=== PATIENT | female | born 1950 | race Caucasian/White ===

== ENCOUNTER → 2018-01-09 09:13 | Outpatient (CLI) | payer MEDICARE, SELFPAY ==
--- NOTE | 2018-01-09 09:16 | DI.RAD.S_ITS ---
PROCEDURE: XR ANKLE LT MIN 3V INDICATIONS: Left ankle pain TECHNIQUE: 3 views of the ankle were acquired. COMPARISON: None. FINDINGS: Bones: Small avulsion fracture at the tip of the lateral malleolus is presumed to be acute although appearance is indeterminate. Overlying soft tissue swelling is present. Another avulsion is noted along the lateral margin of the foot, appearing to be over the distal calcaneus on lateral view. Ankle mortise is normally aligned. No suspicious bony lesions. Soft tissues: No tibiotalar joint effusion. Achilles tendon appears normal. IMPRESSION: 1. Avulsion fracture tip of the lateral malleolus with overlying soft tissue swelling, presumed acute but indeterminate. Correlate clinically. 2. Small cortical avulsion along the lateral margin of the calcaneus. Dictated by: Truman Espinoza M.D. on 01/09/2018 at 9:35 Approved by: Truman Espinoza M.D. on 01/09/2018 at 9:41
== END ==
PROVIDERS: Visit Provider Physician Assistant
DX: S82.62XA Displaced fracture of lateral malleolus of left fibula, initial encounter for closed fracture (principal); S92.002A Unspecified fracture of left calcaneus, initial encounter for closed fracture
CPT/HCPCS: 73610

== ENCOUNTER 2018-10-20 09:20 | Inpatient (IN) | payer MEDICARE, SELFPAY ==
[2018-10-20] VITALS (26 sets, daily range): BP systolic 82–140; BP diastolic 51–90; PULSE 78–105; RESP 14–25; TEMP 36.4–39.3; O2SAT 93–100; BMI 22.9
--- NOTE | 2018-10-20 | PATH_ITS ---
[facility] Accession Number: [id number] . 01 Material submitted: . appendix - APPENDIX . 02 Diagnosis: Appendix, Appendectomy: Acute appendicitis, perforated. No evidence of neoplasm. [facility]/10/24/2018 . 02 Electronically signed: . Clifford Gimenez MD, PhD, Pathologist NPI- [id number] . 01 Gross description: . Received in formalin, labeled appendix, is an appendix (length-4.2 cm, diameter-1.3 cm) with yusuf-pink smooth and shiny and focally dull serosa and attached mesoappendix (up to 1.0 cm in depth). The resection margin is received opened. The distal half of the specimen is covered in yusuf-yellow flaky friable exudate. The lumen contains yusuf-brown solid soft material. The wall is up to 0.3 cm thick. No nodules, masses or lesions are identified. The resection margin is inked black. Section code: (A1) resection margin en face and three additional serial sections; (A2) one-half of the bivalved tip. ([id number]) /[facility] . 02 Pathologist provided ICD-10: K35.20 . 02 CPT . 476571 Performed at: 01 [facility] [address], [place], [place] [id number] MD Pawel Hays MD Phone: [phone] Performed at: 02 [facility] [address] [place], [place] [id number] MD Odalys Mayo MD Phone: [phone]
--- NOTE | 2018-10-20 09:47 | ED_ITS ---
HPI - Abdominal Pain General Chief Complaint: Abdominal Pain Stated Complaint: Lower Abd. pain Time Seen by Provider: 10/20/18 09:35 Source: patient Mode of arrival: ambulatory Limitations: no limitations History of Present Illness HPI narrative: 68-year-old female comes to the emergency department with complaint of abdominal pain. Started her right lower quadrant, has started to radiate to her general abdomen now. It started 2 days ago on Tuesday. She has become increasingly painful. She has not had fevers but has felt chilled sort of shaky. She denies any chest pain or shortness of she denies any nausea or vomiting. She has had normal bowel movements. She has had no urinary urgency frequency or dysuria. Patient states she does not have any other medical problems. She had lumpectomy for breast cancer in the past. She states no known drug allergies. She does not smoke, drink alcohol or use any illicit drugs. 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 No prior abdominal surgeries. Related Data Home Medications Medication Instructions Recorded Confirmed No Known Home Medications 01/09/18 10/20/18 Allergies Allergy/AdvReac Type Severity Reaction Status Date / Time No Known Drug Allergies Allergy Verified 10/20/18 15:10 Review of Systems Review of Systems ROS Unobtainable: All systems reviewed & are unremarkable except as noted in HPI and below Constitutional Denies chills, Denies fever(s), Denies lethargy and Denies weakness Cardiovascular Denies chest pain, Denies palpitations and Denies dyspnea Respiratory Denies chest congestion, Denies cough and Denies dyspnea Gastrointestinal Gastrointestinal: Reports abdominal pain (RLQ, now generalized.), Denies constipation, Denies diarrhea, Denies nausea and Denies vomiting Genitourinary Denies hematuria, Denies urinary frequency, Denies dysuria, Denies flank pain, Denies urinary incontinence and Denies urinary urgency Musculoskeletal Denies back pain Integumentary/Breasts Denies rash Neurologic Denies weakness Endocrine Denies palpitations [facility] History History of lumpectomy (Chronic) Social History (Updated 10/20/18 @ 09:56 by Joie Birch DO) household members: none Smoking Status: Never smoker substance use type: does not use Social History (Updated 10/20/18 @ 09:56 by Joie Birch DO) household members: none Smoking Status: Never smoker substance use type: does not use Exam Narrative Exam Narrative: GENERAL: Alert and oriented x three, well-nourished, well- appearing thin female in moderate distress. HEENT: Head normocephalic, atraumatic, EOMI, pupils reactive, face symmetric, moist mucous membranes NECK: Supple, full range of motion CARDIOVASCULAR: Regular rate and rhythm without murmurs, rubs or gallops. RESPIRATORY: Breath sounds equal bilaterally, no wheezes rales or rhonchi. ABDOMEN: Soft, generalized tenderness greatest in the right lower quadrant. Normoactive bowel sounds all 4 quadrants. No guarding or rebound, rigidity, no mass : No CVA tenderness EXTREMITIES: Normal range of motion, no clubbing or edema. Neurovascularly intact NEUROLOGICAL: Cranial nerves II through XII grossly intact. Moving all extremities SKIN: Warm, dry, no petechiae, no rashes or lesions. Initial Vital Signs Initial Vital Signs: Vital Signs Temperature 98.2 F 10/20/18 09:23 Pulse Rate 102 H 10/20/18 09:23 Respiratory Rate 22 10/20/18 09:23 Blood Pressure 105/83 10/20/18 09:23 Pulse Oximetry 100 10/20/18 09:23 Course Orders Ordered: ED Orders 10/20/18 09:50 Complete Blood Count AUTO DIFF Stat Comprehensive Metabolic Panel Stat Lactate (Lactic Acid) Stat Lipase Stat 10/20/18 09:57 Blood Culture Stat 10/20/18 10:59 CT abdomen pelvis w con Stat 10/20/18 11:33 Urine Culture Stat Urine Microscopic Stat 10/20/18 16:35 Wound Culture and Gram Stain Routine 10/20/18 18:25 Consult to Discharge Planning Routine Education, smoking cessation ONGOING 10/21/18 05:00 Complete Blood Count AUTO DIFF Routine Acetaminophen (Tylenol) 650 mg PO Q6HR PRN PRN Reason: Mild pain/temp > 100.0 Hydrocodone Bitart/Acetaminophen ([place] 5/325) 1 tab PO Q4HR PRN PRN Reason: Pain, Moderate (4-6) Docusate Sodium (Colace) 100 mg PO BID PRN PRN Reason: Constipation Enoxaparin Sodium (Lovenox) 40 mg SUBCUT DAILY [facility] Gabapentin (Neurontin) 300 mg PO BID NILDA Lactated Ringer's (Lactated Ringers) 1,000 mls @ 100 mls/hr IV CONT NILDA Piperacillin/Tazobactam/Dextrose (Zosyn) 3.375 gm in 50 mls @ 100 mls/hr IV Q6H NILDA Last Infusion: 10/20/18 16:05 Dose: 0 mls/hr Admin: 10/20/18 15:53 Dose: 100 mls/hr Lactated Ringer's (Lactated Ringers) 1,000 mls @ 125 mls/hr IV CONT NILDA Ketorolac Tromethamine (Toradol) 30 mg IV Q8HR PRN PRN Reason: Pain Stop: 10/25/18 18:06 Morphine Sulfate (Morphine) 4 mg IV Q4HR PRN PRN Reason: Pain, Severe (7-10) Naloxone HCl (Narcan) 0.2 mg IV Q2MIN PRN PRN Reason: Opiate Reversal Discontinued Medications Acetaminophen (Tylenol) 975 mg PO NOW ONE Stop: 10/20/18 11:48 Last Admin: 10/20/18 11:47 Dose: 975 mg Bupivacaine HCl (Sensorcaine 0.5% (Pf)) 30 ml INJ NOW ONE Stop: 10/20/18 16:34 Last Admin: 10/20/18 16:34 Dose: 10 ml Fentanyl (Sublimaze) 50 mcg IV Q5MIN PRN PRN Reason: Pain, Moderate (4-6) Hydromorphone HCl (Dilaudid) 0.5 mg IV Q5MIN PRN PRN Reason: Pain, Moderate (4-6) Sodium Chloride (Normal Saline 0.9%) 1,877.88 mls @ 625.96 mls/hr 30 ml/kg infuse over 3 hr (1877.88 ml) IV NOW ONE Stop: 10/20/18 12:47 Last Infusion: 10/20/18 12:42 Dose: 625.96 mls/hr Admin: 10/20/18 09:58 Dose: 625.96 mls/hr Piperacillin/Tazobactam/Dextrose (Zosyn) 3.375 gm in 50 mls @ 100 mls/hr IV NOW ONE Stop: 10/20/18 11:22 Last Infusion: 10/20/18 12:15 Dose: 0 mls/hr Admin: 10/20/18 11:37 Dose: 100 mls/hr Lactated Ringer's (Lactated Ringers) 1,000 mls @ 42 mls/hr IV CONT NILDA Last Admin: 10/20/18 16:38 Dose: 42 mls/hr Infusion: 10/20/18 16:38 Dose: 42 mls/hr Admin: 10/20/18 13:10 Dose: 42 mls/hr Piperacillin/Tazobactam/Dextrose (Zosyn) 3.375 gm in 50 mls @ 100 mls/hr IV Q6HR NILDA Meperidine HCl (Demerol) 25 mg IV Q5MIN PRN PRN Reason: Pain or shivering Morphine Sulfate (Morphine) 4 mg IV NOW ONE Stop: 10/20/18 09:42 Last Admin: 10/20/18 10:18 Dose: 4 mg Morphine Sulfate (Morphine) 4 mg IV NOW ONE Stop: 10/20/18 11:32 Last Admin: 10/20/18 11:38 Dose: 4 mg Ondansetron HCl (Zofran) 4 mg IV NOW ONE Stop: 10/20/18 09:42 Last Admin: 10/20/18 10:18 Dose: 4 mg Ondansetron HCl (Zofran) 4 mg IV NOW PRN PRN Reason: Nausea And Vomiting Vital Signs - 8 hr 10/20/18 11:32 10/20/18 11:38 10/20/18 11:44 Temperature 102.8 F H 102.8 F H Pulse Rate 104 H 102 H Respiratory Rate 22 20 Blood Pressure Blood Pressure [Left Arm] 128/71 Pulse Oximetry 100 10/20/18 11:47 10/20/18 11:54 10/20/18 12:00 Temperature 102.8 F H 102.7 F H Pulse Rate 105 H Respiratory Rate 22 Blood Pressure Blood Pressure [Left Arm] 124/68 126/64 Pulse Oximetry 96 10/20/18 12:12 10/20/18 12:33 10/20/18 12:34 Temperature 102.7 F H 102.7 F H Pulse Rate 98 H Respiratory Rate Blood Pressure 119/69 Blood Pressure [Left Arm] Pulse Oximetry 99 10/20/18 13:05 10/20/18 15:08 10/20/18 17:39 Temperature 101.2 F H 97.9 F 97.8 F Pulse Rate 94 H 90 Respiratory Rate 16 20 Blood Pressure 97/59 L 105/72 Blood Pressure [Left Arm] Pulse Oximetry 93 98 10/20/18 17:43 10/20/18 17:48 10/20/18 17:54 Temperature Pulse Rate 81 81 78 Respiratory Rate 17 17 15 Blood Pressure 91/51 L 95/59 L 99/53 L Blood Pressure [Left Arm] Pulse Oximetry 95 97 95 10/20/18 18:08 10/20/18 18:20 Temperature 97.6 F Pulse Rate 84 83 Respiratory Rate 15 14 Blood Pressure 90/58 L 110/60 Blood Pressure [Left Arm] Pulse Oximetry 94 95 MDM - Abdominal Pain Lab Data Attestation: I reviewed the patient's lab results. Result diagrams: 10/20/18 09:50 10/20/18 09:50 Lab Results 10/20/18 10/20/18 10/20/18 Range/Units 09:50 09:50 09:50 WBC 21.1 H (4.5-11.0) X10^3/uL RBC 4.08 (4.0-5.2) X10^6/uL Hgb 12.0 (12.0-16.0) g/dL Hct 36.2 (36-46) % MCV 88.7 (80-100) fL MCH 29.5 (26-34) PG MCHC 33.2 (30-36) % RDW 13.4 (11.6-14.8) % Plt Count 299 (150-400) X10^3/uL Neut % (Auto) 89.4 H (50-75) % Lymph % (Auto) 3.1 L (25-40) % [place] % (Auto) 7.2 (3-14) % Eos % (Auto) 0.0 L (2-4) % Baso % (Auto) 0.3 (0-2) % Neut # (Auto) 76748 H (5214-8831) /uL Lymph # (Auto) 600 L (2023-5251) /uL [place] # (Auto) 1500 H (0-900) /uL Eos # (Auto) 0 (0-450) /uL Baso # (Auto) 100 (0-100) /uL Sodium 134 L (137-145) mmol/L Potassium 3.6 (3.4-5.1) mmol/L Chloride 96 L (98-107) mmol/L Carbon Dioxide 24 (22-32) mmol/L BUN 11 (7-17) mg/dL Creatinine 0.80 (0.52-1.04) mg/dL Estimated GFR > 60.0 (>60) mL/min BUN/Creatinine Ratio 13.8 (6-22) Glucose 137 H (80-110) mg/dL Lactate 2.2 H (0.7-2.1) mmol/L Calcium 9.7 (8.4-10.2) mg/dL Total Bilirubin 0.8 (0.2-1.3) mg/dL AST 16 (14-36) IU/L ALT < 6 L (9-52) IU/L Alkaline Phosphatase 77 (38-126) U/L Total Protein 7.8 (6.3-8.2) g/dL Albumin 4.3 (3.5-5.0) g/dL Globulin 3.5 (1.7-4.1) g/dL Albumin/Globulin Ratio 1.2 (1.0-2.8) Lipase 29 (23-300) U/L Urine RBC (0-5/HPF) Urine WBC (0-5/HPF) Ur Squamous Epith Cells (0-5/HPF) Amorphous Sediment Urine Bacteria (None) Granular Casts (None) Urine Mucus (Negative) Ur Culture Indicated? 10/20/18 10/20/18 Range/Units 11:33 12:00 WBC (4.5-11.0) X10^3/uL RBC (4.0-5.2) X10^6/uL Hgb (12.0-16.0) g/dL Hct (36-46) % MCV (80-100) fL MCH (26-34) PG MCHC (30-36) % RDW (11.6-14.8) % Plt Count (150-400) X10^3/uL Neut % (Auto) (50-75) % Lymph % (Auto) (25-40) % [place] % (Auto) (3-14) % Eos % (Auto) (2-4) % Baso % (Auto) (0-2) % Neut # (Auto) (6934-3171) /uL Lymph # (Auto) (6716-0069) /uL [place] # (Auto) (0-900) /uL Eos # (Auto) (0-450) /uL Baso # (Auto) (0-100) /uL Sodium (137-145) mmol/L Potassium (3.4-5.1) mmol/L Chloride (98-107) mmol/L Carbon Dioxide (22-32) mmol/L BUN (7-17) mg/dL Creatinine (0.52-1.04) mg/dL Estimated GFR (>60) mL/min BUN/Creatinine Ratio (6-22) Glucose (80-110) mg/dL Lactate 1.0 (0.7-2.1) mmol/L Calcium (8.4-10.2) mg/dL Total Bilirubin (0.2-1.3) mg/dL AST (14-36) IU/L ALT (9-52) IU/L Alkaline Phosphatase (38-126) U/L Total Protein (6.3-8.2) g/dL Albumin (3.5-5.0) g/dL Globulin (1.7-4.1) g/dL Albumin/Globulin Ratio (1.0-2.8) Lipase (23-300) U/L Urine RBC 0-1/hpf (0-5/HPF) Urine WBC 5-10/hpf H (0-5/HPF) Ur Squamous Epith Cells 0-1 /hpf (0-5/HPF) Amorphous Sediment 1+ Urine Bacteria Occasional (0-1) (None) Granular Casts 0-1/lpf (None) Urine Mucus 1+ H (Negative) Ur Culture Indicated? Specimen cultured Point of care testing: Point of Care Testing Glucose POC 95 Urine Dip Bedside Urine Glucose Negative Bedside Urine Bilirubin - Negative Bedside Urine Ketone ++ 40 Urine Specific [place] 1.010 Bedside Urine Occult Blood + Bedside Urine pH 6.0 Bedside Urine Protein +/- 15 Bedside Urine Urobilinogen - Negative Bedside Urine Nitrite - Negative Bedside Urine Leukocytes - Negative Esterase Imaging Data CT scan - abdomen: Radiologist's impression: [address] [address] [address] Scan Report Signed Patient: Millie Bedolla RMR#: [id number] : 1950Acct:[id number] Age/Sex: 68 / FDate of Service: 10/20/18 Loc: [id number]-[id number] Accession Number: [id number] Procedure: CT abdomen pelvis w con Ordering Provider: Joie Birch D.O. PROCEDURE: CT ABDOMEN PELVIS W CON INDICATIONS: RLQ pain, now radiating to general abdomen TECHNIQUE: After the administration of oral and intravenous contrast, 5 mm thick sections acquired from the diaphragms to the symphysis. 5 mm thick coronal and sagittal reformats were performed. For radiation dose reduction, the following was used: automated exposure control, adjustment of mA and/or kV according to patient size. COMPARISON: None. FINDINGS: Image quality: Excellent. ABDOMEN: Lung bases: There is mild dependent atelectasis bilaterally. Heart size is normal. Solid organs: Evaluation of the liver demonstrates no focal hepatic lesions. The gallbladder appears within normal limits without calcified gallstones. Biliary system is non-dilated. Pancreas enhances normally. No peripancreatic fat stranding or fluid collections. No pancreatic duct dilatation. The spleen is normal in size. No adrenal nodules. Kidneys demonstrate no hydronephrosis. Peritoneum and bowel: The appendix is distended, measuring up to 1.3 cm with mild wall thickening and enhancement. An appendicolith is demonstrated within the lumen measuring up to 0.8 cm. There is periappendiceal fat stranding as well as extensive fat stranding and a small amount of free fluid in the right lower quadrant and right merna pelvis. The findings are consistent with acute appendicitis with probable perforation and peritonitis. No macroscopic free air identified. No discrete peripherally enhancing abscess collection. There is mild segmental wall thickening and enhancement of adjacent small and large bowel loops including the sigmoid colon and distal ileum compatible with reactive inflammatory changes. The remainder of the spine large bowel are normal in caliber. No evidence of bowel obstruction. Nodes and vessels: No retroperitoneal or mesenteric adenopathy. Aorta and inferior vena cava are normal in caliber. Miscellaneous: No ventral hernias. PELVIS: Genitourinary: Bladder wall thickness is normal. Miscellaneous: No inguinal hernias or adenopathy. Bones: No suspicious bony lesions. No vertebral body compression fractures. IMPRESSION: 1. Findings consistent with perforated appendicitis with a localized peritonitis in the right lower quadrant. No discrete abscess collection at this time. 2. Segmental wall thickening of adjacent small and large bowel loops likely represent reactive inflammatory changes. Findings discussed with Dr. Birch on 10/20/18 at 11:25 AM. Dictated by: Pawel Barron M.D. on 10/20/2018 at 11:23 Approved by: Pawel Barron M.D. on 10/20/2018 at 11:31 [facility] Narrative Medical decision making narrative: Patient's symptoms are concerning for appendicitis. Spoke with Dr. Fiore patient has a white count of 21 with the right lower quadrant pain that is now generalized. He does request a CT. The patient has been started on 30 cc/kilos bolus. And Zosyn for antibiotics given. Patient to CT she still had not urinated catheterized and had [address] Barron called back with CT findings with perfect appendicitis, she also has some right lower quadrant fluid and signs of peritonitis, they do not see an abscess but do see some thickening of the bowel wall. Spoke with Dr. Fiore, reviewed CT findings. He accepts. He will write orders for the patient. Patient has some improvement with pain medication, ordered a 2nd dose at patient request. Patient updated, she is aware of the plan and surgery. She know she is NPO. Discharge Plan Departure Patient Disposition: Admitted As Inpatient Clinical Impression: Acute perforated appendicitis, Sepsis Discharge Date/Time: 10/20/18 12:36 Interventions: ED Discharge Assessment Last Done: 10/20/18 12:37 Admit Date/Time: 10/20/18 11:30 Admit Provider: Junaid Fiore
[2018-10-20] MEDS: SODIUM CHLORIDE 0.9% 1,877.88 ML 625.96 ML IV (09:58)
[2018-10-20 10:01] LABS: Add Manual Diff / Slide Review NO; Basophils Absolute Auto 100 /uL (0-100); Basophils Percent Auto 0.3 % (0-2); Eosinophils Absolute Auto 0 /uL (0-450); Hematocrit 36.2 % (36-46); Lymphocytes Absolute Auto 600 /uL (1100-4500); Lymphocytes Percent Auto 3.1 % (25-40); Mean Corpuscular HGB Conc 33.2 % (30-36); Mean Corpuscular Hemoglobin 29.5 PG (26-34); Mean Corpuscular Volume 88.7 fL (80-100); Monocytes Absolute Auto 1500 /uL (0-900); Monocytes Percent Auto 7.2 % (3-14); Neutrophils Absolute Auto 18800 /uL (1500-7000); Neutrophils Percent Auto 89.4 % (50-75); Platelet Count 299 X10^3/uL (150-400); Red Blood Cell Count 4.08 X10^6/uL (4.0-5.2); Red Cell Distribution Width 13.4 % (11.6-14.8); White Blood Cell Count 21.1 X10^3/uL (4.5-11.0)
[2018-10-20 10:16] LABS: Albumin 4.3 g/dL (3.5-5.0); Albumin Globulin Ratio 1.2 (1.0-2.8); Alkaline Phosphatase 77 U/L (38-126); Aspartate Aminotransferase 16 IU/L (14-36); BUN Creatinine Ratio 13.8 (6-22); Bilirubin Total 0.8 mg/dL (0.2-1.3); Blood Urea Nitrogen 11 mg/dL (7-17); Calcium 9.7 mg/dL (8.4-10.2); Carbon Dioxide 24 mmol/L (22-32); Chloride 96 mmol/L (98-107); Estimated Glomerular Filt Rate > 60.0 mL/min (>60); Globulin 3.5 g/dL (1.7-4.1); Glucose 137 mg/dL (80-110); HEMOLYSIS < 15 (0-50); Lactate (Lactic Acid) 2.2 mmol/L (0.7-2.1); Lipase 29 U/L (23-300); Potassium 3.6 mmol/L (3.4-5.1); Sodium 134 mmol/L (137-145); Total Protein 7.8 g/dL (6.3-8.2)
[2018-10-20 10:17] LABS: Alanine Aminotransferase < 6 IU/L (9-52)
[2018-10-20] MEDS: MORPHINE 4 MG/ML INJ IV ×2 (10:18→11:38)
[2018-10-20] MEDS: ONDANSETRON 4 MG/2 ML INJ IV (10:18)
--- NOTE | 2018-10-20 10:59 | DI.CT.S_ITS ---
PROCEDURE: CT ABDOMEN PELVIS W CON INDICATIONS: RLQ pain, now radiating to general abdomen TECHNIQUE: After the administration of oral and intravenous contrast, 5 mm thick sections acquired from the diaphragms to the symphysis. 5 mm thick coronal and sagittal reformats were performed. For radiation dose reduction, the following was used: automated exposure control, adjustment of mA and/or kV according to patient size. COMPARISON: None. FINDINGS: Image quality: Excellent. ABDOMEN: Lung bases: There is mild dependent atelectasis bilaterally. Heart size is normal. Solid organs: Evaluation of the liver demonstrates no focal hepatic lesions. The gallbladder appears within normal limits without calcified gallstones. Biliary system is non-dilated. Pancreas enhances normally. No peripancreatic fat stranding or fluid collections. No pancreatic duct dilatation. The spleen is normal in size. No adrenal nodules. Kidneys demonstrate no hydronephrosis. Peritoneum and bowel: The appendix is distended, measuring up to 1.3 cm with mild wall thickening and enhancement. An appendicolith is demonstrated within the lumen measuring up to 0.8 cm. There is periappendiceal fat stranding as well as extensive fat stranding and a small amount of free fluid in the right lower quadrant and right hemipelvis. The findings are consistent with acute appendicitis with probable perforation and peritonitis. No macroscopic free air identified. No discrete peripherally enhancing abscess collection. There is mild segmental wall thickening and enhancement of adjacent small and large bowel loops including the sigmoid colon and distal ileum compatible with reactive inflammatory changes. The remainder of the spine large bowel are normal in caliber. No evidence of bowel obstruction. Nodes and vessels: No retroperitoneal or mesenteric adenopathy. Aorta and inferior vena cava are normal in caliber. Miscellaneous: No ventral hernias. PELVIS: Genitourinary: Bladder wall thickness is normal. Miscellaneous: No inguinal hernias or adenopathy. Bones: No suspicious bony lesions. No vertebral body compression fractures. IMPRESSION: 1. Findings consistent with perforated appendicitis with a localized peritonitis in the right lower quadrant. No discrete abscess collection at this time. 2. Segmental wall thickening of adjacent small and large bowel loops likely represent reactive inflammatory changes. Findings discussed with Dr. Birch on 10/20/18 at 11:25 AM. Dictated by: Pawel Barron M.D. on 10/20/2018 at 11:23 Approved by: Pawel Barron M.D. on 10/20/2018 at 11:31
[2018-10-20] MEDS: PIPERACILLIN-TAZO 3.375 GM/50 ML FROZ.PIGGY IV ×3 (11:37→21:44)
[2018-10-20] MEDS: ACETAMINOPHEN 325 MG TABLET 975 MG PO (11:47)
[2018-10-20 12:00] LABS: Reflexed Lactate in 2 Hours Y
[2018-10-20 12:32] LABS: Amorphous Sediment Urine 1+; Bacteria Urine Occasional (0-1); RBC Urine 0-1/HPF (0-5/HPF); Squamous Epithelial Cell Urine 0-1 /HPF (0-5/HPF); WBC Urine 5-10/HPF (0-5/HPF)
[2018-10-20 12:33] LABS: Culture Indicated Urine Specimen Cultured; Granular Casts Urine 0-1/LPF; Mucus Urine 1+ (Negative)
[2018-10-20] MEDS: LACTATED RINGERS 1,000 ML 42 ML IV ×2 (13:10→16:38)
--- NOTE | 2018-10-20 15:09 | P.HP_ITS ---
History of Present Illness Date Patient Seen: 10/20/18 Time Patient Seen: 13:53 Chief complaint: Lower Abd. pain Narrative: Patient is a woman with a 2 day history of right lower quadrant pain which is become more diffuse. The pain began in the right lower quadrant is intensified over time. She has been anorexic but not vomiting. She has never had pain like this before. Increases with motion. Chronic dull ache. Patient History Surgical History History of lumpectomy (Chronic) Social History (Updated 10/20/18 @ 09:56 by Joie Birch DO) household members: none Smoking Status: Never smoker substance use type: does not use Family & Social History Social History: household members none Prior Living Arrangements House Safety & Behavioral: Feels Safe in Current Yes Environment Been Physically Hurt or No Threatened By a Person Suicidal Ideation Description None Suicide Plan Description No Plan Tobacco & Substance use: Smoking Status Never smoker alcohol intake frequency holiday/special occasion Substance Use Type does not use Meds Home Medications Medication Instructions Recorded Confirmed Type No Known Home Medications 01/09/18 10/20/18 History Allergies Allergy/AdvReac Type Severity Reaction Status Date / Time No Known Drug Allergies Allergy Verified 10/20/18 15:10 Review of Systems Review of Systems Patient has had a low-grade fever. Patient denies double vision, pain arise, earaches, sore throat, tooth aches, trouble swallowing. Patient denies asthma, breathing issues, shortness of breath. Denies heart problems, chest pain, murmurs. Denies black or bloody bowel movements. No hematemesis. Patient denies blood in her urine or kidney stones. Patient denies seizures, blackouts, unusual bruising or bleeding, anxiety or depression. She has been treated for breast cancer with a right lumpectomy sentinel node biopsy and radiation therapy. She received no chemotherapy and is on no long-term medication. Her natural path did treat her with other medications. Exam Vital Signs (past 8 hours): - 10/20/18 09:23 10/20/18 09:43 10/20/18 10:02 Temperature 98.2 F Pulse Rate 102 H 94 H 96 H Respiratory Rate 22 24 Blood Pressure 105/83 Blood Pressure [Left Arm] 105/83 124/76 Pulse Oximetry 100 100 99 10/20/18 10:30 10/20/18 11:32 10/20/18 11:38 Temperature 102.8 F H Pulse Rate 96 H 104 H Respiratory Rate 25 H 22 Blood Pressure Blood Pressure [Left Arm] 140/90 128/71 Pulse Oximetry 10/20/18 11:44 10/20/18 11:47 10/20/18 11:54 Temperature 102.8 F H 102.8 F H Pulse Rate 102 H Respiratory Rate 20 Blood Pressure Blood Pressure [Left Arm] 124/68 Pulse Oximetry 100 10/20/18 12:00 10/20/18 12:12 10/20/18 12:33 Temperature 102.7 F H 102.7 F H Pulse Rate 105 H 98 H Respiratory Rate 22 Blood Pressure 119/69 Blood Pressure [Left Arm] 126/64 Pulse Oximetry 96 99 10/20/18 12:34 10/20/18 13:05 Temperature 102.7 F H 101.2 F H Pulse Rate Respiratory Rate Blood Pressure Blood Pressure [Left Arm] Pulse Oximetry Oxygen Delivery Method Room Air Narrative Exam Narrative: Operative no apparent distress. Pupils a small round and equal. No swelling of the lids. Ears without lesion. Teeth are intact. No open le sions in the mouth or oropharynx. Neck is supple. No nodes in the neck or supraclavicular areas. Trachea is midline mobile. Thyroid is not enlarged. There is no tenderness neck or thyroid. She has a right-sided bruit none on the left heart regular rate and rhythm without murmur gallop. Patient has clear lungs without rales or rhonchi. Equal percussion. Abdomen is distended mildly soft but diffusely tender. No hernias appreciated. Alert and oriented x3. Speech rate and content are appropriate. Lying very still. Objective Imaging CT scan - abdomen: My impression: Patient appears to have a fecalith and inflammation around her appendix. Labs Result Diagrams: 10/20/18 09:50 10/20/18 09:50 Labs: Laboratory Results - last 24 hr 10/20/18 10/20/18 10/20/18 09:50 09:50 09:50 WBC 21.1 H RBC 4.08 Hgb 12.0 Hct 36.2 MCV 88.7 MCH 29.5 MCHC 33.2 RDW 13.4 Plt Count 299 Neut % (Auto) 89.4 H Lymph % (Auto) 3.1 L [place] % (Auto) 7.2 Eos % (Auto) 0.0 L Baso % (Auto) 0.3 Neut # (Auto) 71701 H Lymph # (Auto) 600 L [place] # (Auto) 1500 H Eos # (Auto) 0 Baso # (Auto) 100 Sodium 134 L Potassium 3.6 Chloride 96 L Carbon Dioxide 24 BUN 11 Creatinine 0.80 Estimated GFR > 60.0 BUN/Creatinine Ratio 13.8 Glucose 137 H Lactate 2.2 H Calcium 9.7 Total Bilirubin 0.8 AST 16 ALT < 6 L Alkaline Phosphatase 77 Total Protein 7.8 Albumin 4.3 Globulin 3.5 Albumin/Globulin Ratio 1.2 Lipase 29 Urine RBC Urine WBC Ur Squamous Epith Cells Amorphous Sediment Urine Bacteria Granular Casts Urine Mucus Ur Culture Indicated? 10/20/18 10/20/18 11:33 12:00 WBC RBC Hgb Hct MCV MCH MCHC RDW Plt Count Neut % (Auto) Lymph % (Auto) [place] % (Auto) Eos % (Auto) Baso % (Auto) Neut # (Auto) Lymph # (Auto) [place] # (Auto) Eos # (Auto) Baso # (Auto) Sodium Potassium Chloride Carbon Dioxide BUN Creatinine Estimated GFR BUN/Creatinine Ratio Glucose Lactate 1.0 Calcium Total Bilirubin AST ALT Alkaline Phosphatase Total Protein Albumin Globulin Albumin/Globulin Ratio Lipase Urine RBC 0-1/hpf Urine WBC 5-10/hpf H Ur Squamous Epith Cells 0-1 /hpf Amorphous Sediment 1+ Urine Bacteria Occasional (0-1) Granular Casts 0-1/lpf Urine Mucus 1+ H Ur Culture Indicated? Specimen cultured Assessment & Plan Assessment & Plan narrative: Patient with probable ruptured appendicitis based on clinical exam and CT scan. I discussed laparoscopic and possible open appendectomy with her. Risks of bleeding, infection or abscess, alternative diagnoses all discussed with her. I would expect her to be here 2 or 3 days minimum due to the perforation and I told her to expect a drain. She had trouble voiding cell Cavanaugh had to be placed in the ER. All questions were answered and she appears to understand wishes to proceed Quality VTE Deep Vein Thrombosis/Pulmonary Embolism Present on Admission: No
--- NOTE | 2018-10-20 15:12 | PM.PREOP ---
Pre-operative Note Interval Note History & Physical reviewed/Exam performed by Physician: Yes Changes to H&P: No
--- NOTE | 2018-10-20 16:21 | SUR.OPER ---
Supine on padded OR bed, head on pillow, right arm secured on padded arm boards at <90 degrees abduction, left arm is tucked, legs uncrossed, safety belt at thigh, tape over blanket over lower legs.
[2018-10-20] MEDS: BUPIVACAINE 0.5% (PF) VIAL 30 ML INJ (16:34)
--- NOTE | 2018-10-20 17:51 | P.OP_ITS ---
Operative Date/Time/Diagnoses Date of procedure: 10/20/18 Time of procedure: 17:43 Pre-op diagnosis: Appendicitis probably ruptured Post-op diagnosis: same (Ruptured necrotic appendix acute) Procedure & Clinicians Procedure: Laparoscopic appendectomy Same procedure as scheduled: Yes Indications: History physical findings and imaging consistent with perforated appendicitis Surgeon: Junaid Fiore Click Yes if Unassisted: Yes Anesthesia Type: General Operative Notes Findings: Necrosis of the mid and distal portions of the appendix. Appendix was encased in the mesentery of the terminal ileum. Closure Type: primary Specimen(s): other (Appendix) Applied: drain(s) (Todd-Isaac drain in the right gutter from the appendix into the pelvis) Estimated Blood Loss (mL): 15 Procedure in detail: The patient was placed supine on the operating room table a nd underwent general endotracheal anesthesia. The patient was prepped and draped in the usual fashion. Local anesthetic was infiltrated and an incision made beneath the umbilicus. It was carried down under direct vision through the fascia into the peritoneal cavity. Stay sutures of 0 Vicryl were placed in the fascia. A 12 mm port was inserted and 2 additional ports were placed. These were 5 mm ports. One was placed between the umbilicus and pubis and 1 in the left lower quadrant. The cecum and terminal ileum were identified. The base of the appendix was easily seen but the small bowel and fat surrounding the more distal portion of the appendix was inflamed and had yellow fibrinous material any place that was near the inflamed appendix. Using entirely blunt dissection I dissected the appendix away from the small bowel mesentery. The distal portion to the midportion of the appendix was frankly necrotic. I delivered it into the wound and the mesoappendix simply fell apart. I cleaned back to the base of the appendix. I decided to incorporate the artery into my tie at the base of the appendix. An 0 PDS loop was placed at the base of the appendix and cinched down. The appendix was occluded with a clamp distal to this and the appendix transected between the tie and the clamp. The appendix was immediately placed in a bag. The mucosa of the base of the appendix was cauterized. The right gutter and pelvis were copiously irrigated and suctioned free of fluid. A 7 mm Todd-Isaac was inserted through the inferior most port and laid into the pelvis along the right gutter up to where the appendix had been attached to the cecum. It was covered with the small bowel of the right lower quadrant. I had mobilized the small bowel completely in this area to prevent a postoperative obstructive process if possible. Once I was satisfied with the drain placement The ports were all removed. The stay sutures at the umbilicus were tied. An additional 2 0 PDS was placed between the knees. The wounds were all irrigated and 4 0 Vicryl subcuticular interrupted sutures were used to close the skin. Mastisol and Steri-Strips were placed on the umbilical and left lower quadrant incisions. The drain was secured with a 3 0 nylon. The patient tolerated the procedure well. She was awakened and taken to recovery area in good condition. Complications: none Condition: stable Disposition: PACU Plan for aftercare: Admission
--- NOTE | 2018-10-20 18:33 | PC.NURSE ---
Addendum entered by Amanda Bennett R.N. 10/20/18 21:58: Mostly sleeping unless roused by staff. Held sedating meds until pt more wakeful. Ice pack replaced to abdomen. Large bandaids x 3 dry and intact to abdomen. Pt taking ice water without nausea. RAMIRO emptied per OBSTETRICS SCRUB NURSE. Addendum entered by Amanda Bennett R.N. 10/20/18 19:23: Pt rouses easily to voice, but is restful. Pillow provided to splint abdomen for coughing/movement. Taking ice chips/sips independently at bedside. BP readings consistently low left arm. SBP 84 and 82 although wakeful and conversant. Cuff repositioned onto left ankle with pressures improving to 115/69 with HR 90. Addendum entered by Amanda Benntet R.N. 10/20/18 18:57: Pt awake and conversant. Automatic blood pressure reading at this time 84/43. Readjusted blood pressure cuff and reading 100/59 with heartrate 79. Original Note: Pt to room 221 drowsy, but easily rousable. Denies pain, denies nausea. Requests sips water. Bowel tones hypoactive with puffy abdomen. Three large bandaids to abdomen dry and intact. Room air 97%. Provided with ice chips and sips water. Cavanaugh to gravity draining clear, yellow urine. Sister here briefly and leaves for the evening. Oriented pt to call light.
[2018-10-20] MEDS: LACTATED RINGERS 1,000 ML 125 ML IV (19:20)
[2018-10-20] MEDS: ENOXAPARIN 40 MG/0.4 ML SYRINGE SUBCUT (21:43)
[2018-10-21 00:15] VITALS: BP 129/69; PULSE 75; RESP 18; TEMP 36.6; O2SAT 97
[2018-10-21] MEDS: PIPERACILLIN-TAZO 3.375 GM/50 ML FROZ.PIGGY IV ×4 (03:18→21:51)
[2018-10-21] MEDS: LACTATED RINGERS 1,000 ML 125 ML IV ×2 (03:18→12:21)
[2018-10-21] MEDS: KETOROLAC 30 MG/ML VIAL IV ×2 (03:23→16:54)
[2018-10-21 04:45] VITALS: BP 116/51; PULSE 70; RESP 18; TEMP 36.4; O2SAT 97
[2018-10-21 06:16] LABS: Add Manual Diff / Slide Review NO; Basophils Absolute Auto 0 /uL (0-100); Basophils Percent Auto 0.1 % (0-2); Eosinophils Absolute Auto 0 /uL (0-450); Hematocrit 31.7 % (36-46); Hemoglobin 10.4 g/dL (12.0-16.0); Lymphocytes Absolute Auto 500 /uL (1100-4500); Lymphocytes Percent Auto 4.4 % (25-40); Mean Corpuscular HGB Conc 32.7 % (30-36); Mean Corpuscular Hemoglobin 29.1 PG (26-34); Mean Corpuscular Volume 89.1 fL (80-100); Monocytes Absolute Auto 700 /uL (0-900); Monocytes Percent Auto 6.3 % (3-14); Neutrophils Absolute Auto 10300 /uL (1500-7000); Neutrophils Percent Auto 89.2 % (50-75); Platelet Count 225 X10^3/uL (150-400); Red Blood Cell Count 3.56 X10^6/uL (4.0-5.2); Red Cell Distribution Width 13.6 % (11.6-14.8); White Blood Cell Count 11.6 X10^3/uL (4.5-11.0)
[2018-10-21 07:55] VITALS: BP 126/66; PULSE 77; RESP 16; TEMP 36.7; O2SAT 97
--- NOTE | 2018-10-21 08:52 | CM.DANOTE ---
DCP: Case received, EMR reviewed and met with patient. Obtained information from patient regarding baseline health. DCP template assessment completed with information currently available. Patient is a 68 year old female who admitted yesterday morning to the care of the hospital team. PCP: Patient does not have, but stated that she does see a Hand Stripper. Payer: confirmed: Medicare. Patient came to hospital secondary to right lower quadrant pain. She was noted to have a ruptured appendicitis. She had an appendectomy yesterday. Met with her briefly in her room. Alert and oriented, she is on a clear liquid diet. She stated that she is independent at home, and has in-laws that can help her out if needed. 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 She is a vegetarian as well. P: DCP to continue to follow and be available. Patient should be able to discharge home when she is medically stable. Susan Solomon RN/Tennis [employer] Cover Cementer
[2018-10-21] MEDS: ACETAMINOPHEN 325 MG TABLET 650 MG PO ×2 (10:04→20:57)
--- NOTE | 2018-10-21 10:42 | PM.PN.1 ---
Subjective Date Patient Seen: 10/21/18 Time Patient Seen: 10:42 Interval history: Patient is 1 day postop laparoscopic appendectomy for ruptured appendix with abscess. Subjectively she is resting comfortably with minimal pain however is bloated and distended and has that discomfort. She has not been out of bed yet. Exam Vital Signs (past 8 hours): - 10/21/18 04:45 10/21/18 07:55 Temperature 97.5 F L 98.0 F Pulse Rate 70 77 Respiratory Rate 18 16 Blood Pressure 116/51 L 126/66 Pulse Oximetry 97 97 Oxygen Delivery Method Room Air Oxygen Flow Rate 0 Narrative Exam Narrative: Patient is alert and oriented. She is afebrile. Abdomen is quite distended and tympanitic. Todd-Isaac drain is in place and draining a moderate amount of serosanguineous fluid which is not purulent. Objective Labs Result Diagrams: 10/21/18 05:11 10/20/18 09:50 Labs: Laboratory Results - last 24 hr 10/20/18 10/20/18 10/21/18 11:33 12:00 05:11 WBC 11.6 H RBC 3.56 L Hgb 10.4 L Hct 31.7 L MCV 89.1 MCH 29.1 MCHC 32.7 RDW 13.6 Plt Count 225 Neut % (Auto) 89.2 H Lymph % (Auto) 4.4 L [place] % (Auto) 6.3 Eos % (Auto) 0.0 L Baso % (Auto) 0.1 Neut # (Auto) 57627 H Lymph # (Auto) 500 L [place] # (Auto) 700 Eos # (Auto) 0 Baso # (Auto) 0 Lactate 1.0 Urine RBC 0-1/hpf Urine WBC 5-10/hpf H Ur Squamous Epith Cells 0-1 /hpf Amorphous Sediment 1+ Urine Bacteria Occasional (0-1) Granular Casts 0-1/lpf Urine Mucus 1+ H Ur Culture Indicated? Specimen cultured Assessment & Plan Assessment & Plan narrative: Patient is recovering normally from laparoscopic appendectomy for a ruptured appendix. She is afebrile. Her white count has fallen from 21,000 and is now 11,000. Cultures of course are not back yet. G stain showed no organisms. We will continue IV Zosyn continue clear liquids ambulate the patient I have ordered a Dulcolax suppository to try to help with some of the distention. Quality VTE Deep Vein Thrombosis/Pulmonary Embolism Present on Admission: No
[2018-10-21] MEDS: BISACODYL 10 MG SUPP PR (13:29)
[2018-10-21 16:15] VITALS: BP 94/51; PULSE 94; RESP 22; TEMP 36.7; O2SAT 98
[2018-10-21] MEDS: SIMETHICONE 80 MG TABLET 160 MG PO ×3 (16:39→20:58)
--- NOTE | 2018-10-21 17:48 | PC.NURSE ---
Addendum entered by Amanda Bennett R.N. 10/21/18 21:03: Pt reports some improvement in abdominal pressure. Abdomen looks less distended than at beginning of shift and pt reports feels this way. Bowel tones are rare, but present. Abdomen is soft. Up walking in hallway at this time. Addendum entered by Amanda Bennett R.N. 10/21/18 18:16: Now requests pain medications for abdominal discomfort. Sister is in room advocating for pt. Pt given choice between vicodin and morphine and pt chooses iv morphine. This was administered slow push. Ice to abdomen. Pt makes choice to sip Pepsi brought in by pt's sister. Addendum entered by Amanda Bennett R.N. 10/21/18 18:02: Pt reports little improvement to abdominal pressure s/p toradol. Offered narcotics to manage pain and pt declines. Original Note: Pt up in room independently marching in place. Encouraged pt to balance activity to promote bowel function with periods of rest as pt just had abdominal surgery. Pt admits to feeling tired and was encouraged back into bed to rest. Abdomen is distended with tinkling bowel tones only. No flatus. This writer editor offered pt explanation of why this discomfort occurs s/p lap abdominal surgery. Pt declined enema after this writer editor offered x 2. Meds given as per emar. Pt states sister has advised pt to drink Pepsi. This writer editor advised pt not to consume carbonated beverages when abdomen is distended and no flatus is being passed. Informed pt do not have access to soft drinks in nurse's pantry. Pt admits to abdominal pressure, but denies courtney pain. Assisted into bed and encouraged side lying positioning in bed. Warm blanket to abdomen. Toradol to manage pt's discomfort. T-tube sponges surrounding rosario site are moderately saturated so these were removed. No active drainage noted. Covered drain site with bulky 4 x 4's and pantiliner secured with mesh panties.
[2018-10-21] MEDS: MORPHINE 4 MG/ML INJ IV (18:10)
[2018-10-21 20:00] VITALS: BP 104/64; PULSE 82; RESP 16; TEMP 36.8; O2SAT 96
[2018-10-21] MEDS: GABAPENTIN 300 MG CAPSULE PO (20:56)
[2018-10-21] MEDS: DOCUSATE 100 MG CAPSULE PO (20:57)
--- NOTE | 2018-10-21 22:16 | PC.NURSE ---
CERAMIC TILE INSTALLER Note. RAMIRO drain had an output of 15 ml, but I wanted to note that the drain had a lot of leakage and soaked a pad and lots of leaking on the floor after she went on a walk. The pad and mesh underwear were changed and re dressed after she got back in bed.
[2018-10-21 23:15] VITALS: BP 117/71; PULSE 78; RESP 18; TEMP 37; O2SAT 99
[2018-10-22] MEDS: LACTATED RINGERS 1,000 ML 125 ML IV (03:56)
[2018-10-22] MEDS: PIPERACILLIN-TAZO 3.375 GM/50 ML FROZ.PIGGY IV ×4 (03:56→21:28)
[2018-10-22 04:03] VITALS: BP 150/76; PULSE 78; RESP 18; TEMP 36.6; O2SAT 98
[2018-10-22 07:25] VITALS: BP 113/77; PULSE 89; RESP 20; TEMP 36.6; O2SAT 99
[2018-10-22] MEDS: DOCUSATE 100 MG CAPSULE PO (08:08)
[2018-10-22] MEDS: GABAPENTIN 300 MG CAPSULE PO ×2 (08:08→21:13)
[2018-10-22] MEDS: ACETAMINOPHEN 325 MG TABLET 650 MG PO ×2 (08:08→16:50)
[2018-10-22] MEDS: KETOROLAC 30 MG/ML VIAL IV ×2 (08:08→16:50)
[2018-10-22] MEDS: SIMETHICONE 80 MG TABLET 160 MG PO ×3 (08:09→21:13)
[2018-10-22] MEDS: ENOXAPARIN 40 MG/0.4 ML SYRINGE SUBCUT (08:09)
--- NOTE | 2018-10-22 09:07 | PM.PN.1 ---
Subjective Date Patient Seen: 10/22/18 Time Patient Seen: 09:07 Interval history: Patient is 2 days postop laparoscopic appendectomy for complicated appendicitis with a gangrenous appendix and abscess. Today she feels better than yesterday. She has less distention. Less pain. She had a small bowel movement yesterday associated with getting a suppository. She is not passing flatus yet on her own. She is drinking sips of water. No nausea no vomiting. Exam Vital Signs (past 8 hours): - 10/22/18 04:03 10/22/18 07:25 Temperature 97.9 F 97.8 F Pulse Rate 78 89 Respiratory Rate 18 20 Blood Pressure 150/76 H 113/77 Pulse Oximetry 98 99 Oxygen Delivery Method Room Air Oxygen Flow Rate 0 Narrative Exam Narrative: Patient is alert and oriented. She is resting comfortably in bed. She is afebrile. Abdomen is less distended than yesterday. She has active bowel sounds. Todd drain is producing a moderate amount of serosanguineous fluid which is not purulent Objective Labs Result Diagrams: 10/21/18 05:11 10/20/18 09:50 Assessment & Plan Assessment & Plan narrative: Patient is recovering. Microbiology reveals Citrobacter which is sensitive to Zosyn which we will continue. Continue her supportive care using simethicone Zantac Dulcolax suppositories. We will keep her Cavanaugh catheter in for 1 more day. Quality VTE Deep Vein Thrombosis/Pulmonary Embolism Present on Admission: No
[2018-10-22] MEDS: BISACODYL 10 MG SUPP PR (10:41)
[2018-10-22 10:51] VITALS: BP 124/77; PULSE 75; RESP 16; TEMP 36.6; O2SAT 99
[2018-10-22 15:00] VITALS: BP 112/75; PULSE 90; RESP 20; TEMP 36.7; O2SAT 99
--- NOTE | 2018-10-22 18:06 | PC.NURSE ---
Addendum entered by Amanda Bennett R.N. 10/22/18 22:01: RAMIRO dressing changed d/t serous saturation at insertion site. 4 x 4's and panti liner to cover with mesh panties to secure. Pt reports feels as though bladder is filling. Manipulated rodriguez catheter tubing and bag to release possible air lock. Large amount pale yellow urine drains into bag and pt reports relief. BL scd's placed and pt encouraged to call for needs. Admits to headache pain, but declines ice, vicodin or any other meds other than tylenol. Informed pt too soon to medicate with tylenol and pt states will be fine. IV antibiotics infusing as ordered to right wrist iv site without difficulty. Original Note: Pt awake and alert resting quietly in bed. Reports feeling better than last evening 10/21. States abdominal distention and pressure improved although states current feeling of pressure in abdomen /10. Administered tylenol and toradol to manage this discomfort. Admits to passing flatus. RAMIRO dressings surrounding insertion site to lower central abdomen are saturated with serous fluid. These were removed and replaced with bulky 4 x 4's, panti liner and secured with mesh panty. Will monitor for continued leaking from tube insertion site. Taking water and clear liquid tray po. Sister is visiting. Agreed upon to wear scd's for sleep. Rodriguez to gravity with clear, yellow urine. Pt declines offer to remove rodriguez catheter at this time.
[2018-10-22 19:00] VITALS: BP 122/77; PULSE 78; RESP 16; TEMP 36.4; O2SAT 96
[2018-10-23 01:57] VITALS: BP 138/80; PULSE 81; RESP 16; TEMP 36.8; O2SAT 96
[2018-10-23] MEDS: LACTATED RINGERS 1,000 ML 75 ML IV (02:07)
--- NOTE | 2018-10-23 02:23 | PC.NURSE ---
Addendum entered by Nehal Crouch R.N. 10/23/18 06:54: Up walking in fox but unable to pass flatus this morning and is feeling bloated again. Only 8cc from RAMIRO this shift. Good UOP at 1150cc. Original Note: Patient is alert and oriented. Breath sounds CTA with RA sat of 96%. HRR. Denies nausea. BT present and has been passing flatus although none recently. Indwelling catheter is patent with clear, yellow urine noted. Bandaid dressings to abdomen are CDI. RAMIRO site with no redness and currently no drainage on dressing covering; fluid in drain is serous. Independent with mobility. Wearing bilateral SCD's. Denies any current pain/ discomfort. Fall risk score is low.
[2018-10-23] MEDS: PIPERACILLIN-TAZO 3.375 GM/50 ML FROZ.PIGGY IV ×4 (04:03→21:06)
[2018-10-23 06:28] VITALS: BP 129/66; PULSE 86; RESP 17; TEMP 36.6; O2SAT 98
[2018-10-23 07:55] VITALS: BP 135/81; PULSE 91; RESP 18; TEMP 37; O2SAT 98
[2018-10-23] MEDS: SIMETHICONE 80 MG TABLET 160 MG PO ×4 (09:39→20:02)
[2018-10-23] MEDS: ENOXAPARIN 40 MG/0.4 ML SYRINGE SUBCUT (09:39)
[2018-10-23] MEDS: KETOROLAC 30 MG/ML VIAL IV ×2 (09:39→20:01)
[2018-10-23] MEDS: ACETAMINOPHEN 325 MG TABLET 650 MG PO (09:39)
[2018-10-23] MEDS: DOCUSATE 100 MG CAPSULE PO (09:39)
[2018-10-23] MEDS: GABAPENTIN 300 MG CAPSULE PO ×2 (09:39→20:02)
--- NOTE | 2018-10-23 10:58 | PM.PN.1 ---
Subjective Date Patient Seen: 10/23/18 Time Patient Seen: 10:58 Interval history: Postoperative day 4 for 68-year-old with perforated appendix pelvic abscess treated laparoscopically. She is recovering feels less abdominal pain and tenderness today I had a small bowel movement and is passing a scant amount of flatus this morning. Todd drain is continuing to drain serosanguineous fluid and now predominantly the fluid is draining around the drain and not into the bulb so it is difficult to measure it Exam Vital Signs (past 8 hours): - 10/23/18 06:28 10/23/18 07:55 Temperature 97.9 F 98.6 F Pulse Rate 86 91 H Respiratory Rate 17 18 Blood Pressure 129/66 135/81 Pulse Oximetry 98 98 Oxygen Delivery Method Room Air Oxygen Flow Rate 0 Narrative Exam Narrative: Patient is alert and oriented minimal abdominal pain she remains afebrile. Abdomen is less distended. Drain is producing serosanguineous fluid mostly around the drain. Objective Labs Result Diagrams: 10/21/18 05:11 10/20/18 09:50 Assessment & Plan Assessment & Plan narrative: Patient is slowly recovering from complicated appendicitis. She remains afebrile. We will continue the IV Zosyn to which her Citrobacter is sensitive. Continue the drain. Continue clear liquid diet. Change her IV solution today to dextrose half-normal saline with 20 of KCl. Check labs tomorrow morning. Patient continues to ambulate in the halls. Quality VTE Deep Vein Thrombosis/Pulmonary Embolism Present on Admission: No
[2018-10-23 11:50] VITALS: BP 125/77; PULSE 79; RESP 16; TEMP 36.7; O2SAT 99
--- NOTE | 2018-10-23 14:03 | CM.DPC ---
DCP: continued: case received, EMR reviewed. Noted pt up and ambulating in halls; standing in front of large window at end of fox marching in place. See that pt's sister has been here and acting as advocate for her. (sister identified as Nancy Green, . ) Pt is expected to d/c to home setting when stable for same. Will check in with pt tomorrow and follow prn.
[2018-10-23] MEDS: DEXTROSE 5%-0.45NS W/KCL 20MEQ 1,000 ML 84 MEQ IV (14:06)
--- NOTE | 2018-10-23 14:25 | PC.NURSE ---
Day shift pt c/o pressure in abd of 02/06 this AM, provided scheduled meds as well as tylenol and toradol. pt states decreased to 7 on reassessment. Declines additional meds later in shift when meds available to be given again. in afternoon, abd feels softer and appears less distended than this AM. Dressing changed around RAMIRO site 3x this shift. pt has minimal clear liquids, does drink lots of water. Also has been drinking apple cider vinegar in warm water, notiified and ok with this. will continue to monitor.
[2018-10-23 15:22] VITALS: BP 150/79; PULSE 76; RESP 18; TEMP 36.4; O2SAT 95
[2018-10-23 19:40] VITALS: BP 139/76; PULSE 73; RESP 18; TEMP 36.9; O2SAT 96
--- NOTE | 2018-10-23 22:40 | PC.NURSE ---
Pt reports mainly feeling pressure in lower abdomen. Noted abdomen distended at 1600 but after passing flatus and small BM, abdomen softer. Active bowel tones noted in all 4 quads. RAMIRO drain collected no fluid but moderate amount of serous drainage in dressings over drain site. Dressing changed twice with absorbent material saturated. SKin integrity maintained with no sign of breakdown. Pt voiding large amounts of urine, drinking well but no appetite as yet. Taking apple cider vinegar according to her gang investigator's recommendations. Pt denies chills, feeling fatigued mainly but ambulating without difficulty.
[2018-10-24] VITALS (7 sets, daily range): BP systolic 135–149; BP diastolic 81–90; PULSE 72–84; RESP 16–18; TEMP 36.7–37.1; O2SAT 96–97
[2018-10-24] MEDS: DEXTROSE 5%-0.45NS W/KCL 20MEQ 1,000 ML 84 MEQ IV (03:47)
[2018-10-24] MEDS: PIPERACILLIN-TAZO 3.375 GM/50 ML FROZ.PIGGY IV ×4 (03:47→23:34)
[2018-10-24 05:10] LABS: Add Manual Diff / Slide Review NO; Basophils Absolute Auto 100 /uL (0-100); Basophils Percent Auto 0.8 % (0-2); Eosinophils Absolute Auto 200 /uL (0-450); Hemoglobin 9.7 g/dL (12.0-16.0); Lymphocytes Absolute Auto 1500 /uL (1100-4500); Lymphocytes Percent Auto 17.9 % (25-40); Mean Corpuscular HGB Conc 33.4 % (30-36); Mean Corpuscular Hemoglobin 29.3 PG (26-34); Mean Corpuscular Volume 87.6 fL (80-100); Monocytes Absolute Auto 1000 /uL (0-900); Monocytes Percent Auto 12.4 % (3-14); Neutrophils Absolute Auto 5600 /uL (1500-7000); Neutrophils Percent Auto 66.9 % (50-75); Platelet Count 338 X10^3/uL (150-400); Red Blood Cell Count 3.31 X10^6/uL (4.0-5.2); Red Cell Distribution Width 13.6 % (11.6-14.8); White Blood Cell Count 8.4 X10^3/uL (4.5-11.0)
[2018-10-24 05:16] LABS: Blood Urea Nitrogen 6 mg/dL (7-17); Calcium 8.6 mg/dL (8.4-10.2); Carbon Dioxide 28 mmol/L (22-32); Chloride 102 mmol/L (98-107); Estimated Glomerular Filt Rate > 60.0 mL/min (>60); Glucose 106 mg/dL (80-110); HEMOLYSIS < 15 (0-50); Potassium 3.2 mmol/L (3.4-5.1); Sodium 137 mmol/L (137-145)
--- NOTE | 2018-10-24 08:43 | PM.PNPO.1 ---
Subjective Date Patient Seen: 10/24/18 Time Patient Seen: 08:44 Interval history: The patient is 4 days out from a laparoscopic appendectomy for necrotic appendicitis. She is feeling well. Still feels a little bloated but much better than she was. She is passing some flatus. She said she was up all night having liquid bowel movements its distal like water. She has fair appetite but has been on liquids. Exam Vital Signs (past 8 hours): - 10/24/18 05:14 10/24/18 07:20 Temperature 98.0 F 98.2 F Pulse Rate 77 75 Respiratory Rate 16 18 Blood Pressure 137/86 Pulse Oximetry 96 97 Oxygen Delivery Method Room Air Oxygen Flow Rate 0 Narrative Exam Narrative: Abdomen is soft. Nontender. Much less distended than when I last saw her preop/postop. Drain is clear yellow fluid. She is draining around the tube now. Objective Labs Result Diagrams: 10/24/18 04:50 10/24/18 04:50 Labs: Laboratory Results - last 24 hr 10/24/18 10/24/18 04:50 04:50 WBC 8.4 RBC 3.31 L Hgb 9.7 L Hct 29.0 L MCV 87.6 MCH 29.3 MCHC 33.4 RDW 13.6 Plt Count 338 Neut % (Auto) 66.9 Lymph % (Auto) 17.9 L [place] % (Auto) 12.4 Eos % (Auto) 2.0 Baso % (Auto) 0.8 Neut # (Auto) 5600 Lymph # (Auto) 1500 [place] # (Auto) 1000 H Eos # (Auto) 200 Baso # (Auto) 100 Sodium 137 Potassium 3.2 L Chloride 102 Carbon Dioxide 28 BUN 6 L Creatinine 0.60 Estimated GFR > 60.0 BUN/Creatinine Ratio 10.0 Glucose 106 Calcium 8.6 Assessment & Plan Post-op Postoperative Procedures Operation Date: 10/20/18 14:30 Actual Procedures Side Surgeon p Laparoscopic Appendectomy for perforated appendix Junaid Fiore MD Postoperative day: 4 Postoperative status: doing well Postoperative status narrative: Patient's hematocrit is 29. Preoperatively it was 36. Since we lost very little blood intraoperatively to account for this I assume that she was quite dehydrated from being ill for several days which would cause her crit to be higher than normal. This is probably principally a dilutional effect of her significant illness. This will have to be followed on discharge. Postoperative plan narrative: DC drain. Decrease IV. Advance diet. Continue IV antibiotics. Possible discharge in the morning. Quality VTE Deep Vein Thrombosis/Pulmonary Embolism Present on Admission: No
[2018-10-24] MEDS: ENOXAPARIN 40 MG/0.4 ML SYRINGE SUBCUT (09:07)
--- NOTE | 2018-10-24 09:20 | PC.NURSE ---
0900 Pt up and about in room and halls. Pt denies pain. States has been having loose/watery BMs all night.09 Dr Fiore in at bedside, dcd the RAMIRO tube & covered with dsd. Ordered for stool specimen/c-diff. start full liq diet.
[2018-10-24 12:36] LABS: Clostridium Difficile Tox PCR Negative for C. diff
--- NOTE | 2018-10-24 12:48 | CM.DPC ---
DCP: continued: Met with pt as planned after review of Dr. Fiore's progress note of today. RAMIRO drain has been removed. Diet is advancing. Dr. Fiore is checking for ? c-diff as pt had loose watery stools all night. Pt is found lying in bed, looking comfortable. She confirms she is feeling better. She says her sister Roxanne will be coming home to stay with her for awhile after she discharges from the hospital. She expects to follow up with Dr. Fiore at d/c. She confirms she does not have a PCP. She has a physician on [facility] that she often confers with but says I would not consider him a PCP. P: home in next day or so when stable for same: sister to stay with her for supportive assist.
[2018-10-24] MEDS: POTASSIUM CHLORIDE 20 MEQ/15 ML UDC PO (13:09)
[2018-10-24] MEDS: SIMETHICONE 80 MG TABLET 160 MG PO ×2 (13:11→17:32)
--- NOTE | 2018-10-24 13:13 | PC.NURSE ---
lab was drawn. potassium level was 3.2, physician was notified and ordered an oral potassium. Given with primary RN Perla per nurse discretion.
--- NOTE | 2018-10-24 20:44 | PC.NURSE ---
a/O x3, 97%RA, LS clear denies SOB. Pt up and down to window couch and bed. BT+, mild distention, loose stools x 2, denies nausea. changed abd drsg @ 1945, serous drainage noted to half of drsg, from previous site of RAMIRO drain, site well approximated and CDI, 2 lap sites, umbilicus and RMQ,covered with steri strips CDI. RFA SL. Indep to BRP and ambulating. Diet changed to reg for breakfast. Denies pain so far this shift.
[2018-10-25] MEDS: PIPERACILLIN-TAZO 3.375 GM/50 ML FROZ.PIGGY IV ×2 (04:05→09:40)
[2018-10-25 04:08] VITALS: BP 136/78; PULSE 81; RESP 16; TEMP 36.7; O2SAT 93
[2018-10-25 07:46] VITALS: BP 111/77; PULSE 90; RESP 14; TEMP 36.8; O2SAT 96
[2018-10-25] MEDS: POTASSIUM CHLORIDE 20 MEQ/15 ML UDC PO (08:12)
[2018-10-25] MEDS: ENOXAPARIN 40 MG/0.4 ML SYRINGE SUBCUT (08:13)
--- NOTE | 2018-10-25 09:34 | PC.NURSE ---
Pts RAMIRO drain site dressing changed, less drainage to area. Pt up independently. She is comfortable and waiting to go home.
[2018-10-25 11:30] VITALS: BP 126/80; PULSE 90; RESP 16; TEMP 36.7; O2SAT 96
--- NOTE | 2018-10-25 12:41 | PM.DS.1 ---
History of Present Illness Chief complaint: Lower Abd. pain Narrative: Patient is a woman with a 2 day history of right lower quadrant pain which is become more diffuse. The pain began in the right lower quadrant is intensified over time. She has been anorexic but not vomiting. She has never had pain like this before. Increases with motion. Chronic dull ache. Discharge Providers Date of admission: 10/20/18 11:30 Discharge Date: 10/25/18 Consults: 10/20/18 18:25 Consult to Discharge Planning Routine Comment: Discharge provider: Junaid Fiore MD Summary Discharge Diagnosis: Acute perforated appendicitis Hypokalemia Anemia probably chronic predating admission Dehydration related to pre-admission anorexia Hospital Course: Patient was taken to the operating room where she underwent a laparoscopic appendectomy. She was found to have purulence to free fluid in her abdomen and a necrotic appendix. A drain was placed and she was given broad-spectrum antibiotics. Her temperature normalized and her white count as well. She was hypokalemic and was supplemented with potassium. She was ultimately discharged on a general diet which she was tolerating well. She did have diarrhea but the C diff was negative and it is most likely related to broad-spectrum antibiotics. This should normalize once antibiotics cease. Status at Discharge Cognitive/behavioral status at discharge: oriented Functional status at discharge: independent ambulation Overall status at discharge: patient is progressing back to baseline Exam Vital Signs (past 8 hours): - 10/25/18 07:46 10/25/18 11:30 Temperature 98.2 F 98.1 F Pulse Rate 90 90 Respiratory Rate 14 16 Blood Pressure 111/77 126/80 Pulse Oximetry 96 96 Oxygen Delivery Method Room Air Oxygen Flow Rate 0 Narrative Exam Narrative: Lungs are clear no rales or rhonchi. Heart regular rate and rhythm without murmur gallop. Abdomen is mildly protuberant soft. Incisions are intact. Drain site with decreased drainage. Objective Labs Result Diagrams: 10/24/18 04:50 10/24/18 04:50 Discharge Plan Discharge Plan Patient Disposition: Home Discharge comment: I have sent a prescription to your pharmacy in [place]. It is an antibiotic. Take 1 today, and then 2 a day for the next 3 days. If you eat yogurt you may want to eat a container daily. If you do not eat yogurt, take a probiotic. It may help with your loose stool. Discharge Med Rec/Prescriptions Prescriptions: New ciprofloxacin HCl [Cipro] 500 mg tablet 500 mg PO BID Qty: 7 RF: 0 Follow up/Referrals: Junaid Fiore MD [Physician] - 11/07/18 3:00 pm (If you need to reach after hours please call our office and listen to the entire message. At the end you will be connected with our page tape control skin or spar mill operator.) Provider Discharge Instructions Diet: Diet as Tolerated Activity: Avoid driving until pain free off medicine. Avoid lifting over 10 lb or straining for the next 3 weeks. You may shower but avoid baths or tubs or pools until after the doctor sees you Skin/Wound/Dressing Care Dressing: Change your bandage as needed. Once it stops draining and the skin appears sealed no dressing is necessary. Visit Report/Discharge Packet Instructions: DI for an Appendectomy, DI for Laparoscopy, Ciprofloxacin (By mouth) Visit Report Forms: Stroke Signs & Symptoms Discharge Data Attending Provider: Junaid Fiore Admit Date/Time: 10/20/18 11:30 Quality VTE Deep Vein Thrombosis/Pulmonary Embolism Present on Admission: No
--- NOTE | 2018-10-25 12:45 | P.DS_ITS ---
History of Present Illness Chief complaint: Lower Abd. pain Narrative: Patient is a woman with a 2 day history of right lower quadrant pain which is become more diffuse. The pain began in the right lower quadrant is intensified over time. She has been anorexic but not vomiting. She has never had pain like this before. Increases with motion. Chronic dull ache. Discharge Providers Date of admission: 10/20/18 11:30 Discharge Date: 10/25/18 Consults: 10/20/18 18:25 Consult to Discharge Planning Routine Comment: Discharge provider: Junaid Fiore MD Summary Discharge Diagnosis: Acute perforated appendicitis Hypokalemia Anemia probably chronic predating admission Dehydration related to pre-admission anorexia Hospital Course: Patient was taken to the operating room where she underwent a laparoscopic appendectomy. She was found to have purulence to free fluid in her abdomen and a necrotic appendix. A drain was placed and she was given broad- spectrum antibiotics. Her temperature normalized and her white count as well. She was hypokalemic and was supplemented with potassium. She was ultimately discharged on a general diet which she was tolerating well. She did have diarrhea but the C diff was negative and it is most likely related to broad- spectrum antibiotics. This should normalize once antibiotics cease. Status at Discharge Cognitive/behavioral status at discharge: oriented Functional status at discharge: independent ambulation Overall status at discharge: patient is progressing back to baseline Exam Vital Signs (past 8 hours): - 10/25/18 07:46 10/25/18 11:30 Temperature 98.2 F 98.1 F Pulse Rate 90 90 Respiratory Rate 14 16 Blood Pressure 111/77 126/80 Pulse Oximetry 96 96 Oxygen Delivery Method Room Air Oxygen Flow Rate 0 Narrative Exam Narrative: Lungs are clear no rales or rhonchi. Heart regular rate and rhythm without murmur gallop. Abdomen is mildly protuberant soft. Incisions are intact. Drain site with decreased drainage. Objective Labs Result Diagrams: 10/24/18 04:50 10/24/18 04:50 Discharge Plan Discharge Plan Patient Disposition: Home Discharge comment: I have sent a prescription to your pharmacy in [place]. It is an antibiotic. Take 1 today, and then 2 a day for the next 3 days. If you eat yogurt you may want to eat a container daily. If you do not eat yogurt, take a probiotic. It may help with your loose stool. Discharge Med Rec/Prescriptions Prescriptions: New ciprofloxacin HCl [Cipro] 500 mg tablet 500 mg PO BID Qty: 7 RF: 0 Follow up/Referrals: Junaid Fiore MD [Physician] - 11/07/18 3:00 pm (If you need to reach after hours please call our office and listen to the entire message. At the end you will be connected with our page fruit press operator.) Provider Discharge Instructions Diet: Diet as Tolerated Activity: Avoid driving until pain free off medicine. Avoid lifting over 10 lb or straining for the next 3 weeks. You may shower but avoid baths or tubs or pools until after the doctor sees you Skin/Wound/Dressing Care Dressing: Change your bandage as needed. Once it stops draining and the skin appears sealed no dressing is necessary. Visit Report/Discharge Packet Instructions: DI for an Appendectomy, DI for Laparoscopy, Ciprofloxacin (By mouth) Visit Report Forms: Stroke Signs & Symptoms Discharge Data Attending Provider: Junaid Fiore Admit Date/Time: 10/20/18 11:30 Quality VTE Deep Vein Thrombosis/Pulmonary Embolism Present on Admission: No
--- NOTE | 2018-10-25 13:01 | CM.DPC ---
DCP Cont: Patient is being discharged home today, for she is medically stable. She has good support at home to help with her recuperating time. She is glad that she will be able to return home today Patient has a sister that will be able to stay with her. P: Patient is to be discharged home today. Susan Solomon RN/Surveillance Systems Engineer
--- NOTE | 2018-10-25 13:24 | PC.NURSE ---
Pt d/c'd to home per MD order at 1320. Pt denies pain. Reports no loose stools since yesterday evening. Denies need for simethicone. Lap sites well approximated with steri strips covering site. BTs are present x4 quads. Pt is walking independently with a steady gait. Provided pt d/c packet and educational materials. Reviewed education in detail as well as rx for ciprofloxacin. She verbalizes understanding. Provided f/u appt info, when to seek emergency medical treatment, s/s of infx, safety measures, activity restrictions, and diet order. She verbalizes understanding. Removed PIV. Pt dressed self and declined w/c transport and SBA by staff to [facility]. Friend at bedside is driving her home. No acute distress.
== END 2018-10-25 13:20 | disposition home or self-care (01) | DRG 342 ==
LOC: ED 11:30 → AC 11:31
PROVIDERS: Surgery; Admitting Provider Specialist; Emergency Provider Emergency Medicine; Visit Provider Specialist
PROC: 0DTJ4ZZ Resection of Appendix, Percutaneous Endoscopic Approach (ICD-10-PCS; CPT 44970; principal; 2018-10-20 14:30)
DX: K35.891 Other acute appendicitis without perforation, with gangrene (principal); K52.1 Toxic gastroenteritis and colitis; E86.0 Dehydration; T36.0X5A Adverse effect of penicillins, initial encounter; D64.9 Anemia, unspecified; E87.6 Hypokalemia
CPT/HCPCS: 36415; 36591; 44970; 51701; 51798; 74177; 80048; 80053; 81003; 81015; 83605; 83690; 85025; 87040; 87070; 87075; 87077; 87086; 87186; 87205; 87493; 88304; 96361; 96365; 96375; 96376; 99232; 99284; 99285; J0330; J1100; J1650; J1885; J2270; J2405; J2543; J2704; J3010; Q9967

== ENCOUNTER → 2024-01-27 10:51 | Outpatient (CLI) | payer MEDICARE, SELFPAY ==
[2018-10-25 13:11] VITALS: BMI 22.9
--- NOTE | 2024-01-27 | DI.MG.S_ITS ---
BILATERAL DIGITAL SCREENING MAMMOGRAM 3D/2D WITH CAD: 01/27/2024 CLINICAL: Routine screening. Personal history of right breast cancer. Comparison is made to exams dated: 09/18/2015 mammogram, 08/27/2014 mammogram, and 01/25/2014 mammogram - [facility]. Both breasts are heterogeneously dense, which may obscure small masses (category c / 51-75% glandular tissue). Current study was also evaluated with a Computer Aided Detection (CAD) system. There are benign post operative findings in the right breast. No significant masses, calcifications, or other findings are seen in either breast. There has been no significant interval change. IMPRESSION: BENIGN There is no mammographic evidence of malignancy. A 1 year screening mammogram is recommended. This exam was interpreted at Station ID: [id number]. NOTE: For mammograms, a report in lay terms will be sent to the patient. Approximately 15% of breast malignancies will not be visualized mammographically. In the management of a palpable breast mass, a negative mammogram must not discourage biopsy of a clinically suspicious lesion. Electronically Signed By: Ricki antonio/iván:02/03/2024 09:02:37 letter sent: Normal Exam ACR BI-RADS Category 2: Benign Finding(s) 3342F
== END ==
PROVIDERS: PCP Preventive Medicine Public Health & General Preventive Medicine; Referring Provider Preventive Medicine Public Health & General Preventive Medicine; Visit Provider Preventive Medicine Public Health & General Preventive Medicine
DX: Z12.31 Encounter for screening mammogram for malignant neoplasm of breast (principal); Z85.3 Personal history of malignant neoplasm of breast; R92.333 Mammographic heterogeneous density, bilateral breasts
CPT/HCPCS: 77063; 77067

== ENCOUNTER → 2025-02-01 09:54 | Outpatient (CLI) | payer MEDICARE, SELFPAY ==
[2018-10-25 13:11] VITALS: BMI 22.9
--- NOTE | 2025-02-01 09:56 | DI.MG.S_ITS ---
MM screening mammo BI: 02/01/2025. BI-RADS: 2 CLINICAL: 74-year old female for bilateral screening mammogram. No Tyrer-Cuzick risk score calculation due to the patient's personal history of breast cancer. Patient reports a history of right breast carcinoma diagnosed at age 55. Status-post right lumpectomy. No first-degree family history of breast cancer. The patient had a prior right breast biopsy. PRIOR EXAMS 01/27/2024, 09/18/2015. MAMMOGRAPHY TECHNIQUE: 2D and 3D (tomosynthesis) digital mammographic views obtained, with additional images as needed for full coverage. Current study was also evaluated with a Computer Aided Detection (CAD) system. DENSITY C. The breasts are heterogeneously dense, which may obscure small masses. MAMMOGRAPHY FINDINGS Right: Benign-appearing post-surgical changes noted on the right. There are no suspicious masses, calcifications, or other findings in the breast. Left: No suspicious mass, asymmetry, microcalcification, or other abnormality seen. IMPRESSION: Right * No evidence of malignancy with benign findings. Left * No evidence of malignancy. RECOMMENDATIONS Bilateral * Annual screening mammography. OVERALL ASSESSMENT CATEGORY BI-RADS-2: Benign. The [employer] recommends annual screening mammography beginning at age 40 for women with average risk of breast cancer. ELECTRONICALLY SIGNED: Neptali Swanson M.D. on 02/03/2025 at 08:17:50 PM PT Interpreting Station ID: [id number]
== END ==
LOC: MAMMO 09:55
PROVIDERS: PCP Preventive Medicine Public Health & General Preventive Medicine; Referring Provider Preventive Medicine Public Health & General Preventive Medicine; Visit Provider Preventive Medicine Public Health & General Preventive Medicine
DX: Z12.31 Encounter for screening mammogram for malignant neoplasm of breast (principal); Z85.3 Personal history of malignant neoplasm of breast; R92.333 Mammographic heterogeneous density, bilateral breasts
CPT/HCPCS: 77063; 77067